=== PATIENT | male | born 1945 | race Caucasian/White ===

== ENCOUNTER 2020-10-25 11:04 | Emergency (ER) | payer BC ==
[~2020-10-25] VITALS: Ht 165.1 cm; Wt 90.0 kg
[~2020-10-25 11:04] MED LIST: ALBU18HF2 INH; ALLO100T PO; AMIO200T67 PO; APIX5TAB3 PO; ASPI-1071 PO; BUDE10.2 PO; CHLO25TA10 PO; CLON0.1T2 PO; LEVO-144 PO; LOP25T PO; LOSA25TA96 PO; PRAV40TA3 PO; TERA5CAP4 PO; TICA90TA PO
[2020-10-25 13:29] VITALS: BP 160/80
[2020-10-26] MEDS ORDERED: METO25TA6 PO (11:24)
[2020-10-26] MEDS ORDERED: NIFE60TA79 PO (11:25)
[2020-10-26] MEDS ORDERED: AMIO200T6 PO (11:25)
[2020-10-26] MEDS ORDERED: TICA90TA2 PO (11:25)
[2020-10-26] MEDS ORDERED: ASPI81TA52 PO (11:25)
[2020-10-26] MEDS ORDERED: APIX5TAB3 PO (11:25)
== END 2020-10-25 14:31 | disposition home or self-care (01) ==
LOC: ER 11:06
DX: I10 Essential (primary) hypertension (principal); I25.10 Atherosclerotic heart disease of native coronary artery without angina pectoris; E78.00 Pure hypercholesterolemia, unspecified; I25.2 Old myocardial infarction; J45.909 Unspecified asthma, uncomplicated; M10.9 Gout, unspecified; Z98.890 Other specified postprocedural states; Z79.82 Long term (current) use of aspirin; Z79.899 Other long term (current) drug therapy
CPT/HCPCS: 93005; 99283